=== PATIENT | female | born 1955 | race Caucasian/White ===

== ENCOUNTER 2016-12-03 08:15 | Outpatient (CLI) | payer BC ==
[2016-12-03 08:39] LABS: #Basophils 0.1 thou/uL (0.0-0.2); #Eosinphils 0.2 thou/uL (0.0-0.7); #Lymphocytes 2.2 thou/uL (1.20-3.40); #Monocytes 0.6 thou/uL (0.11-0.59); #Neutrophils 3.2 thou/uL (1.40-6.50); %Basophils 1.5 % (0.0-1.0); %Lymphocytes 35.2 % (21.0-51.0); %Monocytes 9.4 % (0.0-10.0); %Neutrophils 50.8 % (42.0-75.0); Hemoglobin 13.5 g/dL (12.0-16.0); Mean Corpuscular HGB CONC 31.5 g/dL (32.0-36.0); Mean Corpuscular Hemoglobin 28.6 pg (27.0-31.0); Mean Corpuscular Volume 90.9 fl (81.0-99.0); Mean Platelet Volume 7.8 fL (7.4-10.4); Platelet Count 306 thou/uL (130-400); Red Blood Cell (RBC) Count 4.73 mill/uL (4.20-5.40); White Blood Cell (WBC) Count 6.2 thou/uL (4.8-10.8)
[2016-12-03 08:49] LABS: Hemoglobin A1c 5.7 % (4.0-6.0)
[2016-12-03 09:12] LABS: ALT (SGPT) 20 U/L (0-55); AST (SGOT) 15 U/L (5-34); Alkaline Phosphatase 77 U/L (40-150); Anion Gap 10 mmol/L (10-20); BUN (Urea Nitrogen) 16 mg/dL (9.8-20.1); Bilirubin, Direct 0.1 mg/dL (0.1-0.3); Bilirubin, Total 0.4 mg/dL (0.2-1.2); Calc. Creatinine Clearance 0 mL/min (70-130); Calcium 9.3 mg/dL (7.8-10.44); Carbon Dioxide 30 mmol/L (23-31); Cardiac Risk 5.2 (Less than 4.5); Chloride 105 mmol/L (98-107); Cholesterol 237 mg/dL (< 200 Desired); Estimated GFR-MDRD 81; Glucose 108 mg/dL (80-115); HDL Cholesterol 46 mg/dL (>60 Neg Risk); LDL Cholesterol, Calculated 140 mg/dL; Potassium 4.4 mmol/L (3.5-5.1); Protein, Total 6.7 g/dL (5.8-8.1); Sodium 141 mmol/L (136-145); Triglycerides 255 mg/dL (Less than 150); Uric Acid 6.9 mg/dL (2.6-6.0)
[2016-12-03 14:49] LABS: Thyroid Stimulating Hormone 4.8205 uIU/mL (0.35-4.94); Vitamin D, 25 Hydroxy 17.8 ng/mL (> 30.0)
== END 2016-12-03 08:16 ==
LOC: MADLABBHPM 08:15
PROVIDERS: ATTEND Family Medicine
DX: E78.5 Hyperlipidemia, unspecified (principal); E55.9 Vitamin D deficiency, unspecified; E79.0 Hyperuricemia without signs of inflammatory arthritis and tophaceous disease; E32.9 Disease of thymus, unspecified; I10 Essential (primary) hypertension; R73.01 Impaired fasting glucose
CPT/HCPCS: 36415; 80048; 80061; 80076; 82306; 83036; 84443; 84550; 85025

== ENCOUNTER 2019-04-28 13:34 | Outpatient (CLI) | payer MEDICARE ==
--- NOTE | 2019-04-28 14:01 | CT ---
CT OF THE ABDOMEN AND PELVIS WITHOUT CONTRAST: 04/28/19 PROVIDED CLINICAL HISTORY: Right flank pain. FINDINGS: No comparisons. The visualized lung bases are free of significant opacity. The solid abdominal organs are suboptimally evaluated in the absence of IV contrast material but demo nstrate an unremarkable unenhanced CT appearance. There is no evidence for urinary tract calculi or h ydronephrosis. There is no bowel dilatation, inflammatory fat stranding, free fluid or lymph node enlargement appare nt. The appendix appears normal. The uterus is not visualized and presumed surgically absent. The osseous structures demonstrate no co ncerning lytic or blastic lesions. Lower lumbar spine facet degenerative changes are seen. IMPRESSION: No evidence for urinary tract calculi or hydronephrosis. POS: [facility]
== END 2019-04-28 13:35 | disposition home or self-care (01) ==
LOC: MADCT 13:34
PROVIDERS: ATTEND Family Medicine
DX: M54.5 Low back pain (principal)
CPT/HCPCS: 74176

== ENCOUNTER 2021-12-09 14:56 | Outpatient (CLI) | payer MEDICARE | END 2021-12-09 14:57 | disposition home or self-care (01) | LOC: MADLAB 14:56 | PROVIDERS: ATTEND Family Medicine | DX: M25.551 Pain in right hip (principal); M79.604 Pain in right leg ==

== ENCOUNTER 2023-03-21 20:30 | Emergency (ER) | payer MEDICARE ==
[2023-03-21] MEDS ORDERED: Lidocaine 1% (PF) 30 ML VIAL ONE (20:46)
[2023-03-21] MEDS ORDERED: Boostrix 0.5 ML (Tdap) VIAL (>/=7 yrs of age) ONE (21:00)
[2023-03-21] MEDS ORDERED: Bacitracin 1 PK ONE (21:03)
== END 2023-03-21 21:13 | disposition home or self-care (01) ==
LOC: MADERS 20:30
DX: S61.211A Laceration without foreign body of left index finger without damage to nail, initial encounter (principal); E03.9 Hypothyroidism, unspecified; I10 Essential (primary) hypertension; E66.9 Obesity, unspecified; Z79.899 Other long term (current) drug therapy; W26.0XXA Contact with knife, initial encounter
CPT/HCPCS: 12002; 90471; 90715; J2001

== ENCOUNTER 2024-02-17 17:20 | Emergency (ER) | payer MEDICARE ==
[2024-02-17] MEDS ORDERED: traMADol HCl 50 MG TAB ONE (17:43)
== END 2024-02-17 18:40 | disposition home or self-care (01) ==
LOC: MADERS 17:20
DX: S83.411A Sprain of medial collateral ligament of right knee, initial encounter (principal); E03.9 Hypothyroidism, unspecified; I10 Essential (primary) hypertension; Z79.899 Other long term (current) drug therapy; X50.0XXA Overexertion from strenuous movement or load, initial encounter; Y93.H2 Activity, gardening and landscaping

== ENCOUNTER 2024-10-15 11:27 | Emergency (ER) | payer MEDICARE ==
[2024-10-15] MEDS ORDERED: Ipratropium/Albuterol 3 ML NEB ONE (11:49)
== END 2024-10-15 12:39 | disposition home or self-care (01) ==
LOC: MADERS 11:27
DX: R05.9 Cough, unspecified (principal); Z87.01 Personal history of pneumonia (recurrent); I10 Essential (primary) hypertension; E78.00 Pure hypercholesterolemia, unspecified
CPT/HCPCS: 71046; J7620

== ENCOUNTER 2025-02-02 10:32 | Outpatient (CLI) | payer MEDICARE | END 2025-02-02 10:33 | disposition home or self-care (01) | LOC: MADRAD 10:32 | PROVIDERS: ATTEND Physician Assistant | DX: M79.604 Pain in right leg (principal); R06.02 Shortness of breath; M48.061 Spinal stenosis, lumbar region without neurogenic claudication; M48.05 Spinal stenosis, thoracolumbar region; M43.17 Spondylolisthesis, lumbosacral region; M46.06 Spinal enthesopathy, lumbar region; M47.816 Spondylosis without myelopathy or radiculopathy, lumbar region | CPT/HCPCS: 71046; 72100 ==

== ENCOUNTER 2025-04-23 07:39 | Outpatient (CLI) | payer MEDICARE ==
[2025-04-23 08:48] LABS: ALT (SGPT) 19 U/L (Less than 34); AST (SGOT) 19 U/L (11-34); Albumin 3.8 g/dL (3.1-4.5); Alkaline Phosphatase 63 U/L (40-110); Anion Gap 13 mmol/L (10-20); BUN (Urea Nitrogen) 20 mg/dL (9.8-20.1); Bilirubin, Total 0.3 mg/dL (0.3-1.2); Calc. Creatinine Clearance 0 mL/min (70-130); Calcium 10.0 mg/dL (7.8-10.44); Carbon Dioxide 31 mmol/L (23-31); Cardiac Risk 5.2 (Less than 4.5); Chloride 102 mmol/L (98-107); Cholesterol 230 mg/dl (< 200 Desired); Globulin 3.2 g/dL (2.4-3.5); Glucose 86 mg/dL (83-110); HDL Cholesterol 44 mg/dL (>60 Neg Risk); LDL Cholesterol, Calculated 137 mg/dL; Potassium 4.2 mmol/L (3.5-5.1); Sodium 142 mmol/L (136-145); Triglycerides 245 mg/dL (Less than 150)
[2025-04-23 09:02] LABS: Thyroid Stimulating Hormone 1.4695 uIU/mL (0.35-4.94)
[2025-04-23 12:22] LABS: Hep C IgG Ab NONREACTIVE S/CO (NonReactive); Hep C Index 0.13 S/CO (0-0.79); Vitamin D, 25 Hydroxy 44.7 ng/ml (> 30.0)
== END 2025-04-23 07:40 | disposition home or self-care (01) ==
LOC: MADLAB 07:39
PROVIDERS: ATTEND Family Medicine
DX: Z11.59 Encounter for screening for other viral diseases (principal); E55.9 Vitamin D deficiency, unspecified; E03.8 Other specified hypothyroidism; E78.5 Hyperlipidemia, unspecified; E11.9 Type 2 diabetes mellitus without complications
CPT/HCPCS: 80053; 80061; 82306; 83036; 84443; 86803

== ENCOUNTER 2025-07-13 08:38 | Outpatient (CLI) | payer MEDICARE ==
[2025-07-13 09:10] LABS: ALT (SGPT) 16 U/L (Less than 34); AST (SGOT) 18 U/L (11-34); Albumin 3.8 g/dL (3.1-4.5); Alkaline Phosphatase 64 U/L (40-110); Anion Gap 15 mmol/L (10-20); BUN (Urea Nitrogen) 19 mg/dL (9.8-20.1); Bilirubin, Total 0.4 mg/dL (0.3-1.2); Calc. Creatinine Clearance 0 mL/min (70-130); Calcium 9.6 mg/dL (7.8-10.44); Carbon Dioxide 30 mmol/L (23-31); Cardiac Risk 3.7 (Less than 4.5); Chloride 104 mmol/L (98-107); Cholesterol 168 mg/dl (< 200 Desired); Globulin 3.2 g/dL (2.4-3.5); Glucose 106 mg/dL (83-110); HDL Cholesterol 45 mg/dL (>60 Neg Risk); LDL Cholesterol, Calculated 85 mg/dL; Potassium 4.0 mmol/L (3.5-5.1); Sodium 145 mmol/L (136-145); Triglycerides 192 mg/dL (Less than 150)
== END 2025-07-13 08:39 | disposition home or self-care (01) ==
LOC: MADLAB 08:38
PROVIDERS: ATTEND Family Medicine
DX: E11.9 Type 2 diabetes mellitus without complications (principal)
CPT/HCPCS: 36415; 80053; 80061; 83036